=== PATIENT | male | born 1985 | race African-American/Black ===

== ENCOUNTER → 2018-11-23 | Day surgery (SDC) | payer OTHER ==
[~2018-11-23] MED LIST: BUPIVACAINE HCL 0.5% 10ML MPF VIAL INJ ONE; CEFAZOLIN SOD 1 GM/NS 50ML 50 ML IV ONE; DEXAMETHASONE SOD PHOS INJ 4 MG/ML VIAL ONE; GABAPENTIN100 MG; HYDROMORPHONE 2MG/ML 2 MG/ML ML ONE; LIDOCAINE HCL 2% LOCAL INJ 5 ML SDV VIAL INJ ONE; MELOXICAM15 MG; MIDAZOLAM HCL 2 MG/2 ML VIAL ONE; ONDANSETRON HCL INJ 2MG/ML 2ML 2 MG/ML VIAL ONE; PROPOFOL IV EMULSION 10 MG/ML 20 ML VIAL ONE; SEVOFLURANE INHAL SOLN 250 ML PEN BTL ONE; ULTRAM50 MG PO
--- OUTSIDE RECORDS SUMMARY | 2018-11-23 05:03 | XMS REPORT ---
Author Author [facility] Address Unknown Phone Unavailable Care Team Providers Care Thai Masseur Name Role Phone Unavailable Unavailable Payers Payer Name Policy Type Policy Number Effective Date Expiration Date Problems This patient has no known problems. Allergies, Adverse Reactions, Alerts Allergy Name Allergy Type Status Severity Reaction(s) Onset Date Inactive Date Treating Clinician Comments No Known Allergies DA Active U 2016-08-26 00:00:00 Medications This patient has no known medications.
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
[2018-11-23 08:00] VITALS: BP 127/86
--- NOTE | 2018-11-23 13:05 | Operative Report ---
DATE OF PROCEDURE: 11/23/2018 SURGEON: Andie Howe DPM PREOPERATIVE DIAGNOSIS: Right third interspace neuroma. POSTOPERATIVE DIAGNOSIS: Right third interspace neuroma. PLANNED PROCEDURE: Right excision of third interspace neuroma. SURGEON: Dr. Stewart DPM. DECK SUPERVISOR: Andie Howe DPM. ANESTHESIA: General with a postoperative block consisting of 10 mL of 0.5% Marcaine plain mixed with 1 mL of dexamethasone phosphate. HEMOSTASIS: Pneumatic ankle tourniquet set at 250 mmHg for a total time approximately 20 minutes. ESTIMATED BLOOD LOSS: Less than 10 mL. PATHOLOGY: None. PROCEDURE NOTE: The patient was seen in the preoperative waiting room. The correct procedure and site were identified. The patient was brought to the operating room, placed on the operating table in the supine position. General anesthesia was initiated. At this time, a well-padded pneumatic tourniquet was placed about the patient's right ankle. The right foot, ankle, and leg were then scrubbed, prepped, and draped in the usual aseptic manner. The right foot, ankle, and leg were exsanguinated with an Esmarch bandage. Pneumatic ankle tourniquet was inflated to 250 mmHg for a total time of approximately 15 minutes. Attention was directed to the dorsal aspect of the patient's right foot where a 4 cm linear incision was made directly over the third interspace. Incision was carried through subcutaneous tissue, it from deeper underling structures. All vital neurovascular structures were identified and retracted medially and laterally and all bleeders were cauterized or ligated as deemed necessary. At this time dissection was carried down to the level of the deep transverse metatarsal ligament, which was identified and incised utilizing a blunt tenotomy scissors. Applying counter pressure plantarly, the neuroma was easily visualized. It was noted to be inflamed, tortuous and enlarged. This was grasped with a hemostat, dissected distally to the proper digital branch, cut and then followed proximally to the interspace, pulled distally, cut proximally and allowed to retract into the foot. The wound was then flushed with copious amounts of sterile saline. Capsule and deep tissue were reapproximated with 3-0 Vicryl, subcutaneous tissue with 3-0 Vicryl. The skin was closed using a running interlocking stitch of 4-0 Prolene. The patient tolerated the procedure and anesthesia well. The patient was transferred to the postoperative recovery room with vital signs stable and vascular status intact. The patient was monitored there for a short period time before being sent home with the following written instructions: 1. Keep the dressing clean, dry, and intact. 2. The patient is to remain partial heel touch weightbearing to the right foot in a postop shoe and to prevent excessive ambulation. 3. The patient was given office number to try to contact us if any problems should arise. JUSTO Sears/JERRELL /[id number]
== END | disposition home or self-care (01) ==
LOC: OR 05:00 → EDSEX 06:30
PROVIDERS: ATTEND Podiatrist Foot & Ankle Surgery
DX: G57.61 Lesion of plantar nerve, right lower limb (principal)
CPT/HCPCS: 28080; J0690; J1100; J1170; J2001; J2250; J2405; J2704